=== PATIENT | female | born 2000 | race African-American/Black ===

== ENCOUNTER 2020-03-28 19:07 | Observation (INO) | payer MEDICAID ==
[~2020-03-28] VITALS: Ht 160 cm; Wt 67.6 kg
[2020-03-28] MEDS: LACTATED RINGERS 1,000 ML IV SCH ×2 (20:18→20:36)
[2020-04-06] MEDS ORDERED: PNV1TABL76 PO (03:29)
[2020-04-06] MEDS ORDERED: FOLI-43 PO (03:30)
[2020-04-06] MEDS ORDERED: PREN-182 PO (05:16)
[2020-04-06] MEDS ORDERED: ALBU6.7H9 INH (05:16)
[2020-04-06] MEDS ORDERED: FOLI20CA MT (05:16)
[2020-04-06] MEDS ORDERED: CALC-1042 PO (05:16)
[2020-04-10] MEDS ORDERED: FERR325T6 MT (10:29)
[2020-04-10] MEDS ORDERED: IBUP-2030 PO (10:29)
== END 2020-03-28 21:38 | disposition home or self-care (01) ==
LOC: 8 EST LDRP 19:07
PROVIDERS: ADMIT Obstetrics & Gynecology; ATTEND Obstetrics & Gynecology
DX: O42.913 Preterm premature rupture of membranes, unspecified as to length of time between rupture and onset of labor, third trimester (principal); O62.9 Abnormality of forces of labor, unspecified; Z3A.33 33 weeks gestation of pregnancy
CPT/HCPCS: 59025; 76805; 76817; 76818; 96360; G0378; J7120; 99281